=== PATIENT | female | born 1960 | race Caucasian/White ===

== ENCOUNTER 2017-02-16 08:36 | Emergency (ER) | payer MEDICARE, OTHER ==
[~2017-02-16] VITALS: Ht 175.3 cm; Wt 124.7 kg
[~2017-02-16 08:36] MED LIST: ALBU18HF2 INH; ASPI-991 PO; BISA10SU8 RC; BUDE10.2 IH; CLON0.5T4 PO; DIPH1TAB PO; DOCU-25 PO; DULO60CA45 PO; HYDR-548 PO; IBUP-1955 PO; INSU100I4 SQ; INSU300I SQ; IPRA0.2S9 IH; LOPE2TAB25 PO; MIRT15TA7 PO; OXYC40TA50 PO; PROM6.25 PO; RISP0.2515 PO; SERT50TA12 PO; SIMV20TA6 PO; TRIA0.252 PO
--- NOTE | 2017-02-16 09:05 | NUR ---
CALLED [facility] FOR TRANSPORT ETA [id number]
--- NOTE | 2017-02-16 10:41 | NUR ---
Patient discharged to [facility] accompanied by 2 driver education instructor, in stable condition. Written and verbal after care instructions given. Patient verbalizes understanding of instruction. Prescription given.
[2017-02-16 10:54] VITALS: BP 102/75
== END 2017-02-16 11:02 | disposition home or self-care (01) ==
LOC: ER 08:38
DX: B30.9 Viral conjunctivitis, unspecified (principal); H00.036 Abscess of eyelid left eye, unspecified eyelid; E11.9 Type 2 diabetes mellitus without complications; I10 Essential (primary) hypertension; Z79.4 Long term (current) use of insulin; Z79.82 Long term (current) use of aspirin; Z98.84 Bariatric surgery status
CPT/HCPCS: 99285; A4606; Z7610

== ENCOUNTER 2017-02-26 00:59 | Emergency (ER) | payer MEDICARE, OTHER ==
[~2017-02-26] VITALS: Ht 165.1 cm; Wt 108.9 kg
--- NOTE | 2017-02-26 01:05 | NUR ---
PT ERICKSON#[id number] FROM [facility], PT C/O LEFT SIDED ABD PAIN X 4 DAYS PT DENEIS N/V/D LAST BM YESTERDAY. PT AOX3 RR EVEN AND UNLABORED. NO SOB NOTED. NAD NOTED. NO NVD AT THIS TIME. PT GOWNED AND PLACED ON MONITOR WAITING FOR MD GILES.
--- NOTE | 2017-02-26 01:06 | NUR ---
DR. SARKAR AT BEDSIDE FOR EVAL.
[2017-02-26] MEDS ORDERED: ONDANSETRON HCL/PF 4 MG/2 ML VIAL ONE (01:19)
[2017-02-26] MEDS ORDERED: MORPHINE SULFATE INJ 4 MG/ML DISP.SYRIN ONE (01:19)
--- NOTE | 2017-02-26 01:23 | NUR ---
PT TO RADIOLOGY FOR CT ABD/ PELVIS
[2017-02-26] MEDS ORDERED: ONDANSETRON HCL/PF 4 MG/2 ML VIAL IVP ONE (01:30)
[2017-02-26] MEDS ORDERED: MORPHINE SULFATE INJ 2 MG/ML DISP.SYRIN IV ONE (01:30)
[2017-02-26] MEDS ORDERED: IV NS 0.9% 1,000 ML BAG IV ONE (01:30)
[2017-02-26] MEDS ORDERED: CARI350T PO (01:32)
[2017-02-26] MEDS ORDERED: TEMA30CA5 PO (01:32)
[2017-02-26] MEDS ORDERED: ASCO500T8 PO (01:32)
[2017-02-26] MEDS ORDERED: FLUT1DIS3 INH (01:32)
[2017-02-26] MEDS ORDERED: CLON0.5T PO (01:32)
[2017-02-26] MEDS ORDERED: NITR0.4T6 SL (01:32)
[2017-02-26] MEDS ORDERED: TRAZ-144 PO (01:32)
[2017-02-26] MEDS ORDERED: BENZ2TAB7 PO (01:32)
[2017-02-26] MEDS ORDERED: HYDR-552 PO (01:32)
[2017-02-26 01:34] LABS: CALCIUM, SERUM 8.2 mg/dL (8.5-10.1); CREATININE 0.7 mg/dL (0.6-1.3); POTASSIUM 4.3 mmol/L (3.5-5.1)
[2017-02-26 01:40] LABS: ALBUMIN 3.1 g/dL (3.4-5.0); BILIRUBIN,DIRECT 0.2 mg/dL (0.0-0.2); BILIRUBIN,TOTAL 0.7 mg/dL (0.2-1.0); TOTAL PROTEIN, SERUM 6.5 g/dL (6.4-8.2)
[2017-02-26 01:45] LABS: BASOPHILS # (AUTO) 0.1 /CMM (0.0-0.2); BASOPHILS % (AUTO) 0.9 % (0.0-2.0); EOSINOPHILS # (AUTO) 0.2 /CMM (0.0-0.7); EOSINOPHILS % (AUTO) 3.4 % (0.0-6.0); HEMATOCRIT 38 % (33-45); HEMOGLOBIN 10.4 g/dL (11.5-14.8); LYMPHOCYTES # (AUTO) 1.4 /CMM (0.8-4.8); LYMPHOCYTES % (AUTO) 20.2 % (20.0-44.0); MEAN CORPUSCULAR HEMOGLOBIN 18 PG (26.0-33.0); MEAN CORPUSCULAR HGB CONC 28 g/dl (31.0-36.0); MEAN CORPUSCULAR VOLUME 63 fL (82-100); MONOCYTES # (AUTO) 0.4 /CMM (0.1-1.30); MONOCYTES % (AUTO) 6.4 % (2.0-12.0); NEUTROPHILS # (AUTO) 4.7 /CMM (1.8-8.9); NEUTROPHILS % (AUTO) 69.1 % (43.0-81.0); PLATELET COUNT (AUTO) 250 /CMM (150-450); RDW COEFFICIENT OF VARIATION 23.9 (11.5-15.0); RED BLOOD CELL COUNT(AUTO) 5.96 MIL/uL (4.0-5.2); WHITE BLOOD COUNT (AUTO) 6.8 K/uL (4.3-11.0)
--- NOTE | 2017-02-26 01:46 | NUR ---
PT RETURNED FROM CT.
--- NOTE | 2017-02-26 02:44 | NUR ---
COLLECTED URINE VIA IN AND OUT CATH, JAG CUEVAS AT BEDSIDE WITNESS
[2017-02-26 03:26] LABS: APPEARANCE,URINE SL CLOUDY (CLEAR); BILIRUBIN,URINE NEGATIVE (NEGATIVE); BLOOD, URINE TRACE-INTA Ery/uL (NEGATIVE); COLOR,URINE YELLOW (YELLOW); KETONES,URINE NEGATIVE (NEGATIVE); LEUKOCYTE ESTERASE ,URINE 3+ (NEGATIVE); NITRITE, URINE POSITIVE (NEGATIVE); PROTEIN,URINE TRACE mg/dl (NEGATIVE); UGLUCOSE NEGATIVE (NEGATIVE)
[2017-02-26 03:32] LABS: BACTERIA,URINE Many /HPF (None Seen); SQUAMOUS EPITHELIAL CELL,UR Few /HPF (None Seen); WBC,URINE TOO NUMEROUS TO COUN /HPF (0-3)
--- NOTE | 2017-02-26 03:52 | NUR ---
AMBULANCE TRANSPORT ETA: 0430 TRIP #:[id number]
--- NOTE | 2017-02-26 04:43 | NUR ---
REPORT GIVEN TO EMT FROM [facility], PT AWARE OF TRANSFER BACK TO [facility]. VSS. PT AOX3. NO SOB NOTED. IV REMOVED, CATHETER INTACT, NO BLEEDING NOTED. APPLIED PRESSURE GAUZE. PT WITH ALL PERSONAL BELONGINGS. PER [facility] TOOK OVER CARE, PT TRANSFERRED OUT VIA GURNEY
[2017-02-26 04:45] VITALS: BP 136/76
== END 2017-02-26 04:45 | disposition home or self-care (01) ==
LOC: ER 01:05
DX: I13.10 Hypertensive heart and chronic kidney disease without heart failure, with stage 1 through stage 4 chronic kidney disease, or unspecified chronic kidney disease (principal); N20.0 Calculus of kidney; F17.200 Nicotine dependence, unspecified, uncomplicated; N18.9 Chronic kidney disease, unspecified; E11.22 Type 2 diabetes mellitus with diabetic chronic kidney disease; J44.9 Chronic obstructive pulmonary disease, unspecified; F20.9 Schizophrenia, unspecified; F32.9 Major depressive disorder, single episode, unspecified; F41.9 Anxiety disorder, unspecified; Z98.84 Bariatric surgery status; Z79.4 Long term (current) use of insulin; Z79.82 Long term (current) use of aspirin
CPT/HCPCS: 36415; 80048-TC; 80076-TC; 81000-TC; 83690-TC; 85025-TC; 87086-TC; 87186-TC; A4606; J2270; J2405; J7030; Z7610

== ENCOUNTER 2017-03-08 13:07 | Emergency (ER) | payer MEDICARE, OTHER ==
[~2017-03-08] VITALS: Ht 175.3 cm; Wt 124.3 kg
[~2017-03-08 13:07] MED LIST changes: +ASCO500T8 PO; +BENZ2TAB7 PO; -BISA10SU8 RC; -BUDE10.2 IH; +CARI350T PO; +CLON0.5T PO; -CLON0.5T4 PO; -DIPH1TAB PO; -DOCU-25 PO; -DULO60CA45 PO; +FLUT1DIS3 INH; +HYDR-552 PO; -IBUP-1955 PO; -LOPE2TAB25 PO; -MIRT15TA7 PO; +NITR0.4T6 SL; +TEMA30CA5 PO; +TRAZ-144 PO; -TRIA0.252 PO
--- NOTE | 2017-03-08 13:10 | NUR ---
pt bibra from [facility] to er bed 09 c/o l flank pain x 5 days. pt states was diagnosed w/ a kidney stone. 03/10 pain. gowned and placed on monitor. awaiting md faria.
--- NOTE | 2017-03-08 13:22 | NUR ---
jena samuels at bedside for eval.
--- NOTE | 2017-03-08 13:37 | NUR ---
iv line startaed blood drawn and sent to lab.
[2017-03-08 13:52] LABS: CALCIUM, SERUM 8.1 mg/dL (8.5-10.1); CREATININE 0.7 mg/dL (0.6-1.3); POTASSIUM 4.5 mmol/L (3.5-5.1)
[2017-03-08 13:57] LABS: APPEARANCE,URINE Turbid (CLEAR); BILIRUBIN,URINE Negative (NEGATIVE); BLOOD, URINE Trace-lysed Ery/uL (NEGATIVE); COLOR,URINE Yellow (YELLOW); KETONES,URINE Negative (NEGATIVE); LEUKOCYTE ESTERASE ,URINE Moderate (NEGATIVE); NITRITE, URINE Positive (NEGATIVE); PROTEIN,URINE Negative (NEGATIVE); UGLUCOSE Negative (NEGATIVE); UROBILINOGEN,URINE 0.2 EU/dL (0.2)
[2017-03-08 14:03] LABS: BASOPHILS # (AUTO) 0.3 /CMM (0.0-0.2); BASOPHILS % (AUTO) 3.2 % (0.0-2.0); EOSINOPHILS # (AUTO) 0.2 /CMM (0.0-0.7); EOSINOPHILS % (AUTO) 2.8 % (0.0-6.0); HEMATOCRIT 39 % (33-45); HEMOGLOBIN 10.6 g/dL (11.5-14.8); LYMPHOCYTES # (AUTO) 1.9 /CMM (0.8-4.8); LYMPHOCYTES % (AUTO) 24.3 % (20.0-44.0); MEAN CORPUSCULAR HEMOGLOBIN 18 PG (26.0-33.0); MEAN CORPUSCULAR HGB CONC 27 g/dl (31.0-36.0); MEAN CORPUSCULAR VOLUME 64 fL (82-100); MONOCYTES # (AUTO) 0.7 /CMM (0.1-1.30); MONOCYTES % (AUTO) 8.8 % (2.0-12.0); NEUTROPHILS # (AUTO) 4.9 /CMM (1.8-8.9); NEUTROPHILS % (AUTO) 60.9 % (43.0-81.0); PLATELET COUNT (AUTO) 335 /CMM (150-450); RBC,URINE 0-2 /HPF (0-2); RDW COEFFICIENT OF VARIATION 21.9 (11.5-15.0); RED BLOOD CELL COUNT(AUTO) 6.02 MIL/uL (4.0-5.2)
[2017-03-08 14:04] LABS: BACTERIA,URINE Many /HPF (None Seen); SQUAMOUS EPITHELIAL CELL,UR Few /HPF (None Seen)
--- NOTE | 2017-03-08 15:23 | NUR ---
rt at bedside for breathing treatment.
--- NOTE | 2017-03-08 15:40 | NUR ---
pt still c/o pain. jena samuels aware. verbal order for morphine 2mg ivp. carried out.
--- NOTE | 2017-03-08 16:10 | NUR ---
pt is still c/o severe pain. unable to tolerate ultrasound. jena samuels made aware. medicated as ordered. see emar.
--- NOTE | 2017-03-08 17:30 | NUR ---
CALLED [facility] FOR TRANSPORT ETA OF 1900 WAS GIVEN. TRIP #[id number]
--- NOTE | 2017-03-08 19:34 | NUR ---
CALLED [facility] FOR UPDATE ON TRANSPORT, ETA OF 1999 WAS GIVEN.
--- NOTE | 2017-03-08 20:21 | NUR ---
transport at bedside for pt transport back to [facility]. stable condition.
[2017-03-08 20:22] VITALS: BP 132/60
== END 2017-03-08 20:22 | disposition home or self-care (01) ==
LOC: ER 13:08
DX: N20.0 Calculus of kidney (principal); N39.0 Urinary tract infection, site not specified; I12.9 Hypertensive chronic kidney disease with stage 1 through stage 4 chronic kidney disease, or unspecified chronic kidney disease; N18.9 Chronic kidney disease, unspecified; E11.22 Type 2 diabetes mellitus with diabetic chronic kidney disease; F32.9 Major depressive disorder, single episode, unspecified; F41.9 Anxiety disorder, unspecified; J44.9 Chronic obstructive pulmonary disease, unspecified; Z79.4 Long term (current) use of insulin; Z79.82 Long term (current) use of aspirin; Z98.84 Bariatric surgery status; F17.200 Nicotine dependence, unspecified, uncomplicated
CPT/HCPCS: 36415; 76770; 80048; 81001; 85025; 87077; 87086; 87186; 94640; 96365; 96375; 96376; 99285; A4606; J0696; J2270 ×3; J2405; J7040; J7060; 81000-TC; Z7610